=== PATIENT | male | born 1950 | race Hispanic/Latino ===

== ENCOUNTER → 2025-10-30 | Emergency (ER) | payer MEDICARE ==
--- NOTE | 2025-10-30 23:24 | NUR ---
PT SIGNED IN AT 2230 " AYON LEAKING" CAME TO TRIAGE WINDOW AT [id number] AND STATES THEY WILL BE LEAVING DUE TO HIGH VOLUME
== END ==
LOC: EDH 22:31
DX: T83.038A Leakage of other urinary catheter, initial encounter (principal); Z53.21 Procedure and treatment not carried out due to patient leaving prior to being seen by health care provider; Y84.6 Urinary catheterization as the cause of abnormal reaction of the patient, or of later complication, without mention of misadventure at the time of the procedure